=== PATIENT | female | born 1995 | race American Indian/Alaskan Native ===

== ENCOUNTER 2017-07-02 09:20 | Emergency (ER) | payer OTHER ==
[2017-07-02 10:27] LABS: Bilirubin,Urine NEG (Negative); Blood,Urine NEG (Negative); Color,Urine Yellow (Yellow); Mucus,Urine 3+ /HPF
[2017-07-02] MEDS ORDERED: ZOFRAN ODT PO ONE (11:14)
[2017-07-02] MEDS ORDERED: TYLENOL PO ONE (11:14)
[2017-07-02 11:18] LABS: HCG Qualitative,Urine Positive (Negative)
--- NOTE | 2017-07-02 11:20 | Emergency Department Report ---
Chief Complaint: Abdominal Pain Stated Complaint: VOMITING/HEADACHE Time Seen by Provider: 07/02/17 11:02 - HPI History of Present Illness: The patient is a 22-year-old female who presents for evaluation of abdominal pain. The patient reports 3 days of mid and lower abdominal pain, cramping in quality, moderate severity, exacerbated with retching, and associated with nausea and nonbilious, nonbloody emesis. She also has a secondary complaint of a mild achy headache since yesterday evening. The patient denies trauma to the head or abdomen, fever, chills, night sweats, diarrhea, blood in the stool, dark tarry stool, dysuria, hematuria, flank pain, vaginal bleeding, genital discharge, inability to pass flatus. - Exam Vital Signs: Vital Signs 07/02/17 09:36 Temperature 98 F Pulse Rate 82 Blood Pressure 127/61 O2 Sat by Pulse 97 Oximetry General: well-nourished, well-developed, no acute distress Head: Normocephalic, atraumatic Eyes: normal sclera, PERRL, EOM intact, ENT: Mucous membranes are pink and moist Neck: trachea midline, neck supple, No neck stiffness, no cervical adenopathy Respiratory: Breath sounds equal bilaterally, no wheezing, rales, or rhonchi Cardio: S1 and S2 present, no murmurs, rubs, gallops, capillary refill is brisk Abdomen: Normoactive bowel sounds, soft abdomen, periumbilical and suprapubic tenderness to palpation present, no rigidity, no guarding or rebound tenderness Chest WALL/Back: No tenderness to palpation of the chest wall, no CVA tenderness with percussion Musc: No pitting edema Skin: No rash Neuro: alert oriented x4, normal cognition, speech normal, no facial drooping, CN2-12 grossly intact, no obvious gross motor deficit in the upper or lower extremities, no obvious gross sensation deficit to crude touch or 2 pt discrimination, 2+ symmetric reflexes on DTR testing, no coordination deficit with [id number] testing, romberg negative, patient able to to ambulate without abnormal gait Psych: Normal affect MSE screening note: Focused history and physical exam performed. Due to findings the following was ordered: ED Disposition for MSE Clinical Impression: Acute suprapubic pain Acute tension-type headache Qualifiers: Intractability: not intractable Qualified Code(s): G44.209 - Tension-type headache, unspecified, not intractable Condition: Undetermined Instructions: Abdominal Pain (ED) Referrals: PENNY PATRICIA MD [Primary Care Provider] - 3-5 Days
[2017-07-02 11:38] LABS: Basophils % (Auto) 0.9 % (0.0-1.8); Eosinophils % (Auto) 0.3 % (0.0-4.3); Hematocrit 42.2 % (30.3-42.9); Lymphocytes # (Auto) 1.6 K/mm3 (1.2-5.4); Lymphocytes % (Auto) 43.3 % (13.4-35.0); Mean Corpuscular HGB Conc 33 % (30-34); Mean Corpuscular Hemoglobin 29 pg (28-32); Mean Corpuscular Volume 88 fl (79-97); Monocytes # (Auto) 0.3 K/mm3 (0.0-0.8); Platelet Count 125 K/mm3 (140-440); Red Blood Count 4.77 M/mm3 (3.65-5.03); Red Cell Distribution Width 13.5 % (13.2-15.2)
[2017-07-02 11:55] LABS: Alanine Aminotransferase 12 units/L (7-56); Albumin 4.1 g/dL (3.9-5); BUN/Creatinine Ratio 11; Blood Urea Nitrogen 8 mg/dL (7-17); Calcium 9.1 mg/dL (8.4-10.2); Hemolysis Index 6; Lipase 13 units/L (13-60)
--- NOTE | 2017-07-02 13:15 | Ultrasound Report ---
ULTRASOUND OB LESS THAN 14 WEEKS FETUS ULTRASOUND OB TRANSVAGINAL HISTORY: Abdominal pain during . COMPARISON: None. TECHNIQUE: Transabdominal and transvaginal ultrasound with color doppler interrogation. FINDINGS: Uterus: The uterus is anteverted. The uterus measures 7 x 5 x 5 cm. No uterine mass is identified. Endometrium: An intrauterine with heart rate measuring 109 beats per minute is identified. A normal appearing pole and yolk sac is identified. Estimated age on ultrasound of 6 weeks, 2 days. Estimated due date 02/23/18. Right ovary: 2.7 x 1.7 x 2.2 cm. Left ovary: 2.2 x 1.3 x 1.3 cm. No pelvic fluid or mass is identified. Normal color doppler interrogation. IMPRESSION: Single viable intrauterine as described. No acute abnormality is appreciated.
--- NOTE | 2017-07-02 13:40 | Emergency Department Report ---
ED HPI - General Chief complaint: Abdominal Pain Stated complaint: VOMITING/HEADACHE Time Seen by Provider: 07/02/17 11:02 Source: patient Mode of arrival: Ambulatory Limitations: No Limitations - History of Present Illness Initial comments: This is a 22-year-old female nontoxic, well nourished in appearance, no acute signs of distress presents to the ED with c/o of abdominal pain with nausea and vomiting x3 days. Patient describes abdominal pain as cramping in pelvic and mid abdomen. Patient denies any radiation of pain. Patient denies following up with a FINAL INSTALLER INSPECTOR doctor. Patient also stated had headache when she came into the ED but resovled now. Denies thunderclap headache. Stated it was a gradual onset and aching diffuse. Patient denies any chest pain, back pain, shortness of breathe, headache, stiff neck, dizziness, or urinary symptoms. Patient denies any vaginal bleeding. Patient denies any allergies or PMH. MD Complaint: abdominal pain, other (nausea/vomiting) -: days(s) (3) Location: pelvis Radiation: none Severity: mild Severity scale (0 -10): 3 Quality: cramping Consistency: intermittent Improves with: none Worsens with: none Associated symptoms: nausea/vomiting, abdominal pain. denies: vaginal bleeding , vaginal discharge, dysuria, headache, vision changes, malaise, dysparuenia, rash, seizure, shortness of breath, syncope, weakness Vaginal bleeding: none :: Yes Number of weeks : 6 OB History - Current : no complications OB History - Previous Pregnancies: no complications Pre-rhina care: none - Related Data : 1 Para: 3 Previous Rx's Medication Instructions Recorded Last Taken Type Acetaminophen 500 mg PO Q8H PRN #30 tablet 07/02/17 Unknown Rx Metoclopramide [Reglan] 10 mg PO TID PRN #30 tab 07/02/17 Unknown Rx Allergies Allergy/AdvReac Type Severity Reaction Status Date / Time No Known Allergies Allergy Unverified 07/02/17 09:36 ED Review of Systems ROS: Stated complaint: VOMITING/HEADACHE Other details as noted in HPI Constitutional: denies: chills, fever Eyes: denies: eye pain, eye discharge, vision change ENT: denies: ear pain, throat pain Respiratory: denies: cough, shortness of breath, wheezing Cardiovascular: denies: chest pain, palpitations Endocrine: no symptoms reported Gastrointestinal: abdominal pain, nausea, vomiting. denies: diarrhea Genitourinary: denies: urgency, dysuria, discharge Musculoskeletal: denies: back pain, joint swelling, arthralgia Skin: denies: rash, lesions Neurological: denies: headache, weakness, paresthesias Psychiatric: denies: anxiety, depression Hematological/Lymphatic: denies: easy bleeding, easy bruising ED Past Medical Hx - Past Medical History Previous Medical History?: No - Surgical History Past Surgical History?: No - Social History Smoking Status: Never Smoker Substance Use Type: None - Medications Home Medications: Home Medications Medication Instructions Recorded Confirmed Last Taken Type Acetaminophen 500 mg PO Q8H PRN #30 tablet 07/02/17 Unknown Rx Metoclopramide [Reglan] 10 mg PO TID PRN #30 tab 07/02/17 Unknown Rx ED Physical Exam - General Limitations: No Limitations General appearance: alert, in no apparent distress - Head Head exam: Present: atraumatic, normocephalic - Eye Eye exam: Present: normal appearance Pupils: Present: normal accommodation - ENT ENT exam: Present: normal exam, mucous membranes moist - Neck Neck exam: Present: normal inspection, full ROM. Absent: tenderness, meningismus, lymphadenopathy - Respiratory Respiratory exam: Present: normal lung sounds bilaterally. Absent: respiratory distress, wheezes, rales, rhonchi, stridor, chest wall tenderness, accessory muscle use, decreased breath sounds, prolonged expiratory - Cardiovascular Cardiovascular Exam: Present: regular rate, normal rhythm, normal heart sounds. Absent: bradycardia, tachycardia, irregular rhythm, systolic murmur, diastolic murmur, rubs, gallop - GI/Abdominal GI/Abdominal exam: Present: soft, tenderness (pelvic region), normal bowel sounds. Absent: distended, guarding, rebound, rigid, diminished bowel sounds - Expanded GI/Abdominal Exam Expanded GI/Abdominal exam: Absent: psoas sign, obturator sign, heel tap sign, Tilley's sign, Rovsing's sign, tenderness at Mcburney's Point, ascites - Rectal Rectal exam: Present: deferred - Extremities Exam Extremities exam: Present: normal inspection, full ROM, normal capillary refill - Back Exam Back exam: Present: normal inspection, full ROM. Absent: tenderness, CVA tenderness (R), CVA tenderness (L), muscle spasm, paraspinal tenderness, vertebral tenderness, rash noted - Neurological Exam Neurological exam: Present: alert, oriented X3, CN II-XII intact, normal gait - Expanded Neurological Exam Expanded Patient oriented to: Present: person, place, time Cranial nerves: EOM's Intact: Normal, Gag Reflex: Normal, Facial Sensation: Normal Cerebellar function: Finger to Nose: Normal Upper motor neuron: Pronator Drift: Normal, Sensory Extinction: Normal Sensory exam: Upper Extremity Light Touch: Normal, Upper Extremity Pin Prick: Normal, Upper Extremity Temperature: Normal, UE 2 Point Discrimination: Normal, Lower Extremity Light Touch: Normal, Lower Extremity Pin Prick: Normal, Lower Extremity Temperature: Normal, LE 2 Point Discrimination: Normal Motor strength exam: RUE: 5, LUE: 5, RLE: 5, LLE: 5 Best Eye Response (Sandi): (4) open spontaneously Best Motor Response (Sandi): (6) obeys commands Best Verbal Response (Sandi): (5) oriented [place] Total: 15 - Psychiatric Psychiatric exam: Present: normal affect, normal mood - Skin Skin exam: Present: warm, dry, intact, normal color. Absent: rash ED Course Vital Signs 07/02/17 07/02/17 09:36 11:19 Temperature 98 F Pulse Rate 82 Respiratory 16 Rate Blood Pressure 127/61 O2 Sat by Pulse 97 Oximetry - Reevaluation(s) Reevaluation #1: 07/02/17 13:40 Patient is speaking in full sentences with no signs of distress noted. - Consultations Consultation #1: 07/02/17 13:41 Patient has been consulted with Dr. Saba about patient history, physical exam, and labs/US and examined and screened patient and agrees to ED plan of care and discharge plan of care. ED Medical Decision Making - Lab Data Result diagrams: 07/02/17 11:24 07/02/17 11:24 - Medical Decision Making This is a 22-year-old female that presents with and abdominal pain. Patient is stable was examined by me and Dr. Saba. Upon examination there is no abdominal tenderness or abdominal distention. Patient received zofran and tylenol which patient symptoms have resolved subsided. A by mouth challenge has been obtained and patient tolerated well with about 4 apple with juice. Patient is discharged with Reglan. Patient was referred to Follow-up with a FINAL INSTALLER INSPECTOR doctor in 3-5 days or if symptoms worsen and continue return to emergency room as soon as possible. At time of discharge, the patient does not seem toxic or ill in appearance. No acute signs of distress noted. Patient agrees to discharge treatment plan of care. No further questions noted by the patient. Critical care attestation.: If time is entered above; I have spent that time in minutes in the direct care of this critically ill patient, excluding procedure time. ED Disposition Clinical Impression: Qualifiers: Weeks of gestation: less than 8 weeks Qualified Code(s): Z3A.01 - Less than 8 weeks gestation of Abdominal pain Qualifiers: Abdominal location: unspecified location Qualified Code(s): R10.9 - Unspecified abdominal pain Disposition: TO HOME OR SELFCARE Is pt being admited?: No Does the pt Need Aspirin: No Condition: Stable Instructions: Abdominal Pain (ED), (ED) Additional Instructions: Follow-up with a strand forming machine operator doctor in 3-5 days or if symptoms worsen and continue return to emergency room as soon as possible. Prescriptions: Acetaminophen 500 mg PO Q8H PRN #30 tablet PRN Reason: Pain Metoclopramide [Reglan] 10 mg PO TID PRN #30 tab PRN Reason: Nausea Referrals: PENNY PATRICIA MD [Primary Care Provider] - 3-5 Days ANTIONE UREÑA MD [Staff Physician] - 3-5 Days [facility] [Provider Group] - 3-5 Days [facility] [Outside] - 3-5 Days [facility] [Outside] - 3-5 Days Forms: Work/School Release Form(ED)
[2017-07-02 14:10] VITALS: BP 118/60
== END 2017-07-02 14:08 | disposition home or self-care (01) ==
LOC: ED 09:20
DX: O26.891 Other specified pregnancy related conditions, first trimester (principal); Z3A.01 Less than 8 weeks gestation of pregnancy
CPT/HCPCS: 36415; 76801; 76817; 80053; 81001; 81025; 83690; 84702; 85025; Q0162